=== PATIENT | male | born 1955 | race Caucasian/White ===

== ENCOUNTER 2022-06-10 03:45 | Emergency (ER) | payer OTHER ==
[2022-06-10 04:28] LABS: BASOPHIL 0.1 % (0-2); EOSINOPHIL 1.2 % (0-7); HCT 47.5 % (42.0-52.0); HGB 16.1 g/dl (13.2-18.0); LYMPHOCYTE 8.7 % (15-48); MCH 30.1 pg (25.0-31.0); MCHC 33.9 g/dL (32.0-36.0); MONOCYTE 5.5 % (0-12); MPV 10.3 fL (6.0-9.5); NEUTROPHIL 84.2 % (41-80); NRBC 0; PLT 228 K/uL (150-400); RBC 5.34 M/uL (4.70-6.00); RDW 12.5 % (11.5-14.0); WBC 9.2 K/uL (4.0-10.5)
[2022-06-10 04:46] LABS: BILIRUBIN - TOTAL 1.1 mg/dL (0.2-1.0); BUN/CREAT RATIO (CALC) 15.9 RATIO; CREATININE 1.45 mg/dL (0.67-1.17); GLOBULIN (CALCULATION) 3.2 g/dL; POTASSIUM 4.5 mmol/L (3.5-5.1); TOTAL PROTEIN 7.2 g/dL (6.4-8.2)
[2022-06-10 05:52] LABS: BILIRUBIN NEGATIVE (NEGATIVE); BLOOD 3+ Ery/uL (NEGATIVE); CLARITY CLEAR (CLEAR); COLOR YELLOW (YELLOW); GLUCOSE (U) NORMAL (NORMAL); LEUKOCYTES NEGATIVE Leu/uL (NEGATIVE); NITRITE NEGATIVE (NEGATIVE); PROTEIN NEGATIVE (NEGATIVE); SPECIFIC GRAVITY >=1.030 (1.001-1.030); UROBILINOGEN 0.2 mg/dL (0.2-1.0)
[2022-06-10 06:00] LABS: URINARY RBC RARE
[2022-06-10] MEDS ORDERED: NORCO 5-325 TA1 EACH PO (06:34)
[2022-06-10] MEDS ORDERED: FLOMAX0.4 MG PO (06:34)
[2022-06-10] MEDS ORDERED: ONDANSETRON ODT4 MG PO (06:34)
== END 2022-06-10 06:55 | disposition home or self-care (01) ==
LOC: FER 03:45
PROVIDERS: Emergency Medicine
DX: N13.0 Hydronephrosis with ureteropelvic junction obstruction (principal); Z88.0 Allergy status to penicillin
CPT/HCPCS: 36415; 80053; 81001; 85025; J1885; J2405; J7030